=== PATIENT | male | born 1960 | race American Indian/Alaskan Native ===

== ENCOUNTER 2020-09-02 09:10 | Emergency (ER) | payer SELFPAY ==
--- NOTE | 2020-09-02 12:07 | Emergency Department Report ---
HPI - General Chief Complaint: Nosebleed Time Seen by Provider: 09/02/20 11:59 - HPI HPI: This is a 60-year-old -[place]ag[place] male presents to the emergency department with a complaint of left-sided nasal bleeding that started this morning. The patient has a history of ITP and says that when his platelets go low that he begins to have nosebleeding. He also has a history of HIV for which he is compliant with his treatment/medication. Patient has required platelet transfusion in the past and says that his normal hospital is [facility]. He says that the nosebleeding was mild and he packed his left nose with some tissue paper. Patient is currently at [facility] for substance abuse treatment. He says that it is very hot there, he may have some type of allergies, and he blew his nose very hard which started the nosebleed. ED Past Medical Hx - Past Medical History Previous Medical History?: Yes Hx HIV: Yes - Surgical History Past Surgical History?: No - Social History Smoking Status: Never Smoker Substance Use Type: None - Medications Home Medications: Home Medications Medication Instructions Recorded Confirmed Last Taken Type Prednisone [predniSONE 10 mg 10 mg PO .TAPER #1 tab.ds.pk 09/02/20 Unknown Rx (6-Day Pack, 21 Tabs)] ED Review of Systems ROS: Stated complaint: NOSEBLEED Other details as noted in HPI Comment: All other systems reviewed and negative Constitutional: denies: chills, fever Eyes: denies: eye pain, vision change ENT: epistaxis. denies: ear pain, throat pain Respiratory: denies: cough, shortness of breath Cardiovascular: denies: chest pain, palpitations Gastrointestinal: denies: abdominal pain, vomiting Genitourinary: denies: dysuria, discharge Musculoskeletal: denies: back pain, arthralgia Skin: denies: rash, lesions Neurological: denies: headache, weakness Physical Exam - Physical Exam Vital Signs: Vital Signs 09/02/20 11:52 Temperature 98.8 F Pulse Rate 85 Respiratory 16 Rate Blood Pressure 143/79 [Left] O2 Sat by Pulse 100 Oximetry Physical Exam: GENERAL: The patient is well-developed well-nourished. HENT: Normocephalic. Atraumatic. Patient has moist mucous membranes. Oropharynx is clear. There is some mild oozing of venous blood in the left nasal passage. EYES: Extraocular motions are intact. NECK: Supple. Trachea is midline. CHEST/LUNGS: Clear to auscultation. There is no respiratory distress noted. HEART/CARDIOVASCULAR: Regular. There is no tachycardia. There is no murmur. ABDOMEN: Abdomen is soft, nontender. Patient has normal bowel sounds. SKIN: Skin is warm and dry. NEURO: The patient is awake, alert, and oriented. The patient is cooperative. The patient has no focal neurologic deficits. Normal speech. MUSCULOSKELETAL: There is no tenderness or deformity. There is no limitation range of motion. ED Course Vital Signs 09/02/20 11:52 Temperature 98.8 F Pulse Rate 85 Respiratory 16 Rate Blood Pressure 143/79 [Left] O2 Sat by Pulse 100 Oximetry ED Medical Decision Making - Medical Decision Making It should be noted that this patient did have labs done during his ED course. We had to switch charts due to a registration error. This patient's labs can be found on account [id number] that were done on 09/02/2020. His labs are mostly unremarkable. There is very mild renal insufficiency with a GFR of 58. The patient does have thrombocytopenia consistent with his history of ITP with a platelet count of 59. This platelet count does not appear consistent with spontaneous bleeding or apply platelet transfusion. Patient was given a dose of prednisone and a spray of Afrin. He was reevaluated multiple times and the bleeding appears to have significantly slowed up if not stopped. Patient appears safe for discharge home at this time. He will be placed on a steroid taper to help with the thrombocytopenia from his ITP. He was given multiple outpatient referrals for otolaryngology for the epistaxis. He will return to the emergency department with any worsening of his symptoms or with any acute distress. Vital signs reassuring throughout his ED course including being afebrile. Critical Care Time: No Critical care attestation.: If time is entered above; I have spent that time in minutes in the direct care of this critically ill patient, excluding procedure time. ED Disposition Clinical Impression: Epistaxis, Thrombocytopenia, History of ITP Disposition: - TO HOME OR SELFCARE Is pt being admited?: No Condition: Stable Instructions: Nosebleed, Adult Additional Instructions: Please follow-up with a primary care physician in the next few days. I have given you a prescription for a few different local ENT physicians to follow-up regarding your nosebleeds. Return to the emergency department with any worsening of your symptoms, new or concerning symptoms not addressed during this current emergency department visit, or with any acute distress. Prescriptions: Prednisone [predniSONE 10 mg (6-Day Pack, 21 Tabs)] 10 mg PO .TAPER #1 tab.ds.pk Referrals: KARLOS SMITH MD [Staff Physician] - 3-5 Days JOS LOPEZ MD [Staff Physician] - 3-5 Days Time of Disposition: 13:44
[2020-09-02 13:54] VITALS: BP 140/87
== END 2020-09-02 13:54 | disposition home or self-care (01) ==
LOC: ED 09:10
DX: D69.6 Thrombocytopenia, unspecified (principal); R04.0 Epistaxis; Z21 Asymptomatic human immunodeficiency virus [HIV] infection status; Z79.899 Other long term (current) drug therapy; Z86.2 Personal history of diseases of the blood and blood-forming organs and certain disorders involving the immune mechanism
CPT/HCPCS: 99282